=== PATIENT | female | born 1985 | race Caucasian/White ===

== ENCOUNTER 2025-04-30 03:51 | Emergency (ER) | payer OTHER ==
[~2025-04-30] VITALS: Ht 162.6 cm; Wt 77.1 kg
[2025-04-30] MEDS ORDERED: ACETAMINOPHEN ES 500 MG TABLET ONE (05:25)
[2025-04-30] MEDS: ACETAMINOPHEN ES 500 MG TABLET PO ONE (05:27)
[2025-04-30] MEDS ORDERED: DIPH50CA37 MC (05:39)
[2025-04-30] MEDS ORDERED: ACET-2030 PO (05:39)
[2025-04-30 06:17] VITALS: BP 138/90; TEMP 98; O2SAT 98
== END 2025-04-30 06:18 | disposition home or self-care (01) ==
LOC: ER 03:56
DX: S00.83XA Contusion of other part of head, initial encounter (principal); S60.511A Abrasion of right hand, initial encounter; W22.8XXA Striking against or struck by other objects, initial encounter; Y93.89 Activity, other specified; Y92.89 Other specified places as the place of occurrence of the external cause; Y99.9 Unspecified external cause status
CPT/HCPCS: 70450-TC; 73130-TC